=== PATIENT | female | born 1930 | race Caucasian/White ===

== ENCOUNTER 2016-07-09 09:00 | Outpatient (RCR) | payer MEDICARE, OTHER | END 2016-07-23 15:44 | disposition home or self-care (01) | LOC: PT 09:00 | PROVIDERS: ATTEND Physician Assistant Medical | DX: M54.2 Cervicalgia (principal); M46.82 Other specified inflammatory spondylopathies, cervical region | CPT/HCPCS: 97110; 97140; 97161; G8981; G8982 ==